=== PATIENT | female | born 1980 | race Caucasian/White ===

== ENCOUNTER 2022-06-14 19:37 | Emergency (ER) | payer SELFPAY ==
[~2022-06-14] VITALS: Ht 162.6 cm; Wt 73.0 kg
[2022-06-14 19:43] VITALS: BP 138/92
== END 2022-06-14 20:00 | disposition left against medical advice (07) ==
LOC: ER 19:37
DX: R55 Syncope and collapse (principal)
CPT/HCPCS: 99283